=== PATIENT | male | born 1965 ===

== ENCOUNTER 2018-10-31 11:33 | Outpatient (CLI) | payer MEDICARE, OTHER | END 2018-10-31 13:33 | disposition home or self-care (01) | LOC: ECT 11:33 | DX: F33.2 Major depressive disorder, recurrent severe without psychotic features (principal); R48.0 Dyslexia and alexia; F34.1 Dysthymic disorder; F90.9 Attention-deficit hyperactivity disorder, unspecified type; B20 Human immunodeficiency virus [HIV] disease; Z82.3 Family history of stroke; Z81.1 Family history of alcohol abuse and dependence; Z79.899 Other long term (current) drug therapy; Z87.891 Personal history of nicotine dependence ==